=== PATIENT | female | born 1975 | race Caucasian/White ===

== ENCOUNTER 2019-08-31 15:03 | Day surgery (SDC) | payer OTHER ==
[~2019-08-31] VITALS: Ht 152.4 cm; Wt 56.4 kg
[~2019-08-31 15:03] MED LIST: CeFAZolin 1 GM/DEXTROSE 50 ML IV ONE; IOTHALAMATE MEGLUMINE 600 MG/ML 50 ML VIAL IVP ONE; SODIUM CHLORIDE 0.9% 1,000 ML IV ONE
[2019-08-31] MEDS ORDERED: MIDAZOLAM HCL 2 MG/2 ML VIAL IVP ONE (15:04)
[2019-08-31] MEDS ORDERED: ONDANSETRON HCL 4 MG/2 ML VIAL IVP ONE (15:04)
[2019-08-31] MEDS ORDERED: LIDOCAINE/PF 2% 5 ML VIAL IM ONE (15:04)
[2019-08-31] MEDS ORDERED: FentaNYL CITRATE-PF 100 MCG/2 ML VIAL IVP ONE (15:04)
[2019-08-31] MEDS ORDERED: DEXAMETHASONE SOD PHOS 4 MG/ML VIAL IVP ONE (15:04)
[2019-08-31] MEDS ORDERED: SUCCINYLCHOLINE CHLORIDE 20 MG/ML 10 ML VIAL IVP ONE (15:04)
[2019-08-31] MEDS ORDERED: PROPOFOL 1% 20 ML VIAL IVP ONE (15:04)
[2019-08-31] MEDS ORDERED: ROCURONIUM BROMIDE 10 MG/ML 5 ML VIAL IVP ONE (15:04)
[2019-08-31] MEDS ORDERED: CeFAZolin 1 GM/DEXTROSE 0 ML IV ONE (15:25)
[2019-08-31 15:42] LABS: BASOPHILS % (AUTO) 0.3 % (0.0-2.0); EOSINOPHILS % (AUTO) 1.5 % (1.0-6.0); HEMATOCRIT 34.8 % (36-46); HEMOGLOBIN 11.7 g/dL (12.0-16.0); LYMPHOCYTES # (AUTO) 1.4 K/uL (1.0-4.8); LYMPHOCYTES % (AUTO) 33.4 % (22.0-44.0); MEAN CORPUSCULAR HEMOGLOBIN 31.5 pg (26.0-34.0); MEAN CORPUSCULAR HGB CONC 33.8 G/dL (31.0-37.0); MEAN CORPUSCULAR VOLUME 93 fL (80-100); MONOCYTES # (AUTO) 0.3 K/uL (0.1-1.0); MONOCYTES % (AUTO) 7.6 % (2.0-9.0); NEUTROPHILS # (AUTO) 2.3 K/uL (1.8-7.7); NEUTROPHILS % (AUTO) 57.2 % (40.0-70.0); PLATELET COUNT (AUTO) 205 K/uL (150-450); RED BLOOD CELL COUNT(AUTO) 3.73 MIL/uL (4.00-5.20); RED CELL DISTRIBUTION WIDTH 14.5 % (11.5-14.5)
[2019-08-31] MEDS ORDERED: CIPROFLOXACIN 400 MG/D5% WATER 200 ML IV ONE (15:45)
[2019-08-31 15:55] LABS: PROTHROMBIN TIME 10.3 SEC (9.4-11.6)
[2019-08-31] MEDS ORDERED: LEVO150 PO (16:12)
[2019-08-31] MEDS ORDERED: PANT40TA25 PO (16:12)
[2019-08-31] MEDS ORDERED: [UNRECOGNIZED DRUG - CODE] PO (16:12)
[2019-08-31] MEDS ORDERED: METH500T7 PO (16:12)
[2019-08-31] MEDS ORDERED: CHOL100018 PO (16:12)
[2019-08-31] MEDS ORDERED: LOSA25TA41 PO (16:12)
[2019-08-31] MEDS ORDERED: HYDROmorphone 2 MG/ML SYRINGE IVP PRN (17:30)
[2019-08-31] MEDS ORDERED: FentaNYL CITRATE-PF 100 MCG/2 ML VIAL IVP PRN (17:30)
[2019-08-31] MEDS ORDERED: MEPERIDINE-PF 25 MG/ML VIAL IVP PRN (17:30)
[2019-08-31] MEDS ORDERED: OXYGEN THERAPY IH SCH (20:00)
== END 2019-08-31 18:45 | disposition home or self-care (01) ==
LOC: SURGERY 15:03
PROVIDERS: ATTEND Internal Medicine Gastroenterology
DX: K83.8 Other specified diseases of biliary tract (principal); K29.60 Other gastritis without bleeding; I10 Essential (primary) hypertension; K21.9 Gastro-esophageal reflux disease without esophagitis; Z88.0 Allergy status to penicillin; Z86.11 Personal history of tuberculosis; Z79.899 Other long term (current) drug therapy; Z91.012 Allergy to eggs; Z88.8 Allergy status to other drugs, medicaments and biological substances; Z91.018 Allergy to other foods; Z98.890 Other specified postprocedural states
CPT/HCPCS: 36415; 43277; 84703; 85025; 85610; 85730; J0330; J0744; J1100; J2250; J2405; J2704; J3010; J3490 ×2; J7030; Q9961; J0690